=== PATIENT | male | born 1945 | race African-American/Black ===

== ENCOUNTER 2020-01-03 19:53 | Emergency (ER) | payer MEDICARE, BC ==
[2020-01-03] MEDS ORDERED: Ketorolac Tromethamine 60 MG/2 ML VIAL ONE (20:11)
[2020-01-03] MEDS ORDERED: Cyclobenzaprine 10 MG TAB ONE (20:11)
== END 2020-01-03 20:18 | disposition home or self-care (01) ==
LOC: BURERS 19:53
DX: M54.5 Low back pain (principal); I10 Essential (primary) hypertension; E78.00 Pure hypercholesterolemia, unspecified; X50.1XXA Overexertion from prolonged static or awkward postures, initial encounter; Z79.899 Other long term (current) drug therapy
CPT/HCPCS: 96372; 99283; J1885